=== PATIENT | female | born 1970 | race Caucasian/White ===

== ENCOUNTER 2021-05-02 15:59 | Emergency (ER) | payer OTHER ==
[~2021-05-02] VITALS: Ht 157.5 cm; Wt 84.1 kg
[2021-05-02 17:16] VITALS: BP 136/88
[2021-05-02 18:19] LABS: HEMATOCRIT 41.8 % (36.0-47.0); HEMOGLOBIN 13.8 g/dl (12.0-15.5); MEAN CORPUSCULAR HEMOGLOBIN 29.1 pg (27.0-33.0); PLATELET COUNT, AUTOMATED 399 10^3/uL (150-450); RED BLOOD COUNT 4.75 10^6/uL (4.00-5.40); WHITE BLOOD COUNT 9.1 10^3/uL (4.0-10.0)
[2021-05-02 18:52] LABS: AMPHETAMINES LEVEL URINE NEGATIVE (NEGATIVE); BARBITURATES URINE NEGATIVE (NEGATIVE); BENZODIAZEPINES URINE NEGATIVE (NEGATIVE); CANNABINOIDS URINE NEGATIVE (NEGATIVE); COCAINE METABOLITE URINE NEGATIVE (NEGATIVE); METHADONE URINE NEGATIVE (NEGATIVE); OPIATES URINE NEGATIVE (NEGATIVE); PHENCYCLIDINE URINE NEGATIVE (NEGATIVE)
[2021-05-02 18:55] LABS: ACETAMINOPHEN LEVEL < 2.0 UG/ML (10.0-30.0); ALBUMIN 4.3 GM/DL (3.2-5.2); ALT/SGPT 35 U/L (12-78); BILIRUBIN,DIRECT < 0.1 MG/DL (0.0-0.2); BILIRUBIN,TOTAL 0.3 MG/DL (0.2-1.0); BLOOD UREA NITROGEN 10 MG/DL (7-18); CARBON DIOXIDE LEVEL 26 MEQ/L (21-32); CHLORIDE LEVEL 108 MEQ/L (98-107); CREATININE FOR GFR 0.76 MG/DL (0.55-1.30); ETHYL ALCOHOL (ETHANOL) < 0.003 % (0.000-0.010); GLOMERULAR FILTRATION RATE > 60.0 (>51); GLUCOSE, FASTING 107 MG/DL (70-100); POTASSIUM SERUM 3.9 MEQ/L (3.5-5.1); SALICYLATE LEVEL < 1.7 MG/DL (5.0-30.0); SODIUM LEVEL 140 MEQ/L (136-145); THYROID STIMULATING HORMONE 0.897 uIU/ML (0.358-3.740); TOTAL PROTEIN 8.2 GM/DL (6.4-8.2)
== END 2021-05-02 20:24 | disposition home or self-care (01) ==
LOC: M ED 15:59
DX: R45.851 Suicidal ideations (principal)

== ENCOUNTER 2023-04-29 08:56 | Day surgery (SDC) | payer OTHER ==
[~2023-04-29] VITALS: Ht 157.5 cm; Wt 86.6 kg
[~2023-04-29 08:56] MED LIST: ALPH600C PO; COQ150CH PO; IBUP200C29 PO; K 10100T PO; KP V1TAB2 PO; LISI10TA24 PO; LORA-243 PO; NS 1,000 ML IV ONE; PANT40TA29 PO; RA M500C PO; SYNT75TA PO; VITA100093 PO; VITMTA PO; ZINC50TA26 PO
[2023-04-29] MEDS ORDERED: propofoL 200 MG/20 ML VIAL As Ordered ONE (09:42)
[2023-04-29] MEDS ORDERED: LIDOCAINE 2% 100MG/5ML SDV (FOR ANES.) As Ordered ONE (09:42)
[2023-04-29] MEDS ORDERED: fentaNYL 100 MCG/2 ML INJECTION As Ordered ONE (10:42)
[2023-04-29 11:26] VITALS: BP 148/68; TEMP 97.9; O2SAT 98
== END 2023-04-29 12:20 | disposition home or self-care (01) ==
LOC: M OPP 08:56
PROVIDERS: ATTEND Internal Medicine Gastroenterology
DX: K31.7 Polyp of stomach and duodenum (principal); K29.80 Duodenitis without bleeding; D72.820 Lymphocytosis (symptomatic); Z79.1 Long term (current) use of non-steroidal anti-inflammatories (NSAID); Z79.890 Hormone replacement therapy; Z79.899 Other long term (current) drug therapy; Z88.8 Allergy status to other drugs, medicaments and biological substances
CPT/HCPCS: 43239; 43251; 88305; J3010

== ENCOUNTER → 2024-04-05 | Outpatient (REF) | payer OTHER ==
[~2024-04-05] MED LIST changes: -NS 1,000 ML IV ONE
[2024-04-05 15:21] LABS: APPEARANCE, URINE CLEAR (CLEAR); BACTERIA, URINE AUTO NEGATIVE (NEGATIVE); BILIRUBIN, URINE AUTO NEGATIVE (NEGATIVE); BLOOD, URINE BLOOD NEGATIVE (NEGATIVE); COLOR, URINE STRAW (YELLOW); GLUCOSE, URINE (UA) AUTO NEGATIVE (NEGATIVE); KETONE, URINE AUTO NEGATIVE (NEGATIVE); LEUKOCYTE ESTERASE, URINE AUTO NEGATIVE (NEGATIVE); NITRITE, URINE AUTO NEGATIVE (NEGATIVE); PROTEIN, URINE AUTO NEGATIVE (NEGATIVE); RBC, URINE AUTO 1 /HPF (0-3); SQUAMOUS EPITHELIAL CELL UR AU 2 /HPF (0-6); UROBILINOGEN, URINE AUTO 0.2 mg/dL (0.0-2.0); WBC, URINE AUTO 0 /HPF (0-3)
== END ==
LOC: M SMT 14:57
PROVIDERS: ATTEND Nurse Practitioner Family
DX: N20.0 Calculus of kidney (principal)

== ENCOUNTER 2025-05-05 13:31 | Inpatient (IN) | payer OTHER ==
[~2025-05-05] VITALS: Ht 157.5 cm; Wt 85.5 kg
[~2025-05-05 13:31] MED LIST changes: -ALPH600C PO; +ALPH600C2 PO
[2025-05-05] MEDS ORDERED: EZET10TA57 PO (15:47)
[2025-05-05] MEDS ORDERED: DICY-61 PO (15:47)
[2025-05-05] MEDS ORDERED: HOME MED LIST COMPLETE! XX SCH (15:50)
[2025-05-05] MEDS ORDERED: MAALOX 30 ML SUSP *UDC PO PRN (18:35)
[2025-05-05] MEDS ORDERED: ACETAMINOPHEN 325 MG TAB PO PRN (18:35)
[2025-05-05] MEDS ORDERED: DICYCLOMINE 10 MG CAP PO PRN (18:35)
[2025-05-05] MEDS: PANTOPRAZOLE 40MG TAB PO SCH (20:52)
[2025-05-05 21:38] VITALS: BP 153/72; TEMP 97.6; O2SAT 97
[2025-05-06 06:27] VITALS: BP 153/72; TEMP 97.6; O2SAT 97
[2025-05-06] MEDS: LEVOTHYROXINE 75 MCG TABLET (0.075 MG) PO SCH (06:35)
[2025-05-06] MEDS ORDERED: LORATADINE 10 MG TAB PO PRN (08:30)
[2025-05-06] MEDS: EZETIMIBE 10 MG TABLET PO SCH (08:39)
[2025-05-06] MEDS: MOM 30 ML SUSPENSION UDC PO PRN (12:08)
[2025-05-06 15:32] VITALS: BP 116/57; TEMP 98.8; O2SAT 97
[2025-05-06] MEDS: traZODone 50 MG TAB PO PRN (20:29)
[2025-05-07 06:24] VITALS: BP 119/56; TEMP 97.7; O2SAT 95
[2025-05-07 08:06] VITALS: BP 132/63
[2025-05-07] MEDS: PILL CUTTER 1 EACH XX PRN (08:10)
[2025-05-07] MEDS: DOCUSATE SODIUM 100 MG CAPSULE PO SCH (13:36)
[2025-05-07 14:52] VITALS: BP 129/56; TEMP 97.9; O2SAT 99
[2025-05-08 06:20] VITALS: BP 114/57; TEMP 98; O2SAT 98
[2025-05-08] MEDS: buPROPion **XL** 150 MG TABLET PO SCH (08:05)
[2025-05-08 14:39] VITALS: BP 124/60; TEMP 98.2; O2SAT 99
[2025-05-09 06:39] VITALS: BP 134/67; TEMP 97.7; O2SAT 95
[2025-05-09 08:31] VITALS: BP 159/76
[2025-05-09 15:33] VITALS: BP 134/60; TEMP 98.6; O2SAT 98
[2025-05-09] MEDS ORDERED: TRAZ-252 PO (18:13)
[2025-05-09] MEDS ORDERED: ABIL1TAB11 PO (18:13)
[2025-05-09] MEDS ORDERED: BUPR150T12 PO (18:13)
[2025-05-09] MEDS ORDERED: COLA100C5 PO (18:13)
[2025-05-10 06:29] VITALS: BP 142/80; TEMP 97.6; O2SAT 96
[2025-05-10 08:21] VITALS: BP 138/84
[2025-05-10 08:26] VITALS: BP 138/84
[2025-05-10] MEDS: IBUPROFEN 400 MG TAB PO PRN (08:26)
== END 2025-05-10 13:03 | disposition home or self-care (01) | DRG 751 ==
LOC: M ED 13:31 → M ED INP 18:31 → M PSY 21:38
PROVIDERS: ADMIT Psychiatry & Neurology Neurology; ATTEND Psychiatry & Neurology Neurology
DX: F33.1 Major depressive disorder, recurrent, moderate (principal); R45.851 Suicidal ideations; F41.9 Anxiety disorder, unspecified; E03.9 Hypothyroidism, unspecified; I10 Essential (primary) hypertension; K21.9 Gastro-esophageal reflux disease without esophagitis; K76.0 Fatty (change of) liver, not elsewhere classified; Z88.8 Allergy status to other drugs, medicaments and biological substances; Z79.890 Hormone replacement therapy; Z79.899 Other long term (current) drug therapy; E78.5 Hyperlipidemia, unspecified; G43.909 Migraine, unspecified, not intractable, without status migrainosus; Z98.41 Cataract extraction status, right eye